=== PATIENT | female | born 1940 | race Caucasian/White ===

== ENCOUNTER 2024-04-02 21:07 | Emergency (ER) | payer OTHER ==
[~2024-04-02] VITALS: Ht 157.5 cm; Wt 61.2 kg
[2024-04-02 21:18] VITALS: BP 165/78; PULSE 84; RESP 14; TEMP 97.3; O2SAT 99
[2024-04-02 21:45] VITALS: TEMP 97.3
[2024-04-02 21:53] LABS: BASOPHILS % (AUTO) 0.3 % (0.0-2.0); EOSINOPHILS # (AUTO) 0.1 K/uL (0-0.4); EOSINOPHILS % (AUTO) 0.9 % (0.0-4.0); HEMATOCRIT 38.3 % (36-48); HEMOGLOBIN 12.8 g/dL (12.0-16.0); LYMPHOCYTES # (AUTO) 7.7 K/uL (2.5-16.5); LYMPHOCYTES % (AUTO) 67.7 % (20.5-51.1); MEAN CORPUSCULAR HEMOGLOBIN 29 pg (27-31); MEAN CORPUSCULAR HGB CONC 33 g/dL (33-37); MEAN CORPUSCULAR VOLUME 88.3 fL (80-94); MONOCYTES # (AUTO) 0.6 K/uL (0.8-1.0); MONOCYTES % (AUTO) 4.9 % (1.7-9.3); NEUTROPHILS % (AUTO) 26.2 % (42.2-75.2); PLATELET COUNT (AUTO) 149 K/uL (140-450); RED BLOOD CELL COUNT(AUTO) 4.34 MIL/uL (4.20-5.40); RED CELL DISTRIBUTION WIDTH 14.9 % (11.6-13.7); WHITE BLOOD COUNT (AUTO) 11.3 K/uL (4.8-10.8)
[2024-04-02 21:59] LABS: ANION GAP 11.6 (8-16); CARBON DIOXIDE 27.3 mmol/L (21-32); CHLORIDE 103 mmol/L (98-107); CREATININE 0.5 mg/dL (0.6-1.3); GLUCOSE 83 mg/dL (74-106); POTASSIUM 3.9 mmol/L (3.5-5.1); SODIUM SERUM 138 mmol/L (136-145); UREA NITROGEN, BLOOD 13 mg/dL (7-18)
[2024-04-03 02:45] VITALS: BP 140/61; PULSE 91; RESP 14; O2SAT 99
== END 2024-04-03 04:00 | disposition home or self-care (01) ==
LOC: MED 21:07
DX: I44.1 Atrioventricular block, second degree (principal); R00.2 Palpitations; I11.9 Hypertensive heart disease without heart failure; Z79.899 Other long term (current) drug therapy
CPT/HCPCS: 36415; 71045; 80048; 83880; 84484; 85025; 93005; 99285; Q0092